=== PATIENT | female | born 1960 | race Caucasian/White ===

== ENCOUNTER → 2021-05-18 | Outpatient (CLI) | payer MEDICARE, OTHER | END | disposition home or self-care (01) | LOC: RADFLMAIN 12:00 | PROVIDERS: ATTEND Otolaryngology | DX: Z53.9 Procedure and treatment not carried out, unspecified reason (principal) ==

== ENCOUNTER 2023-04-21 07:50 | Inpatient (IN) | payer OTHER, MEDICARE ==
[2023-04-21] MEDS ORDERED: SODIUM CHLORIDE 0.9% 1,000 ML IV STA (08:07)
[2023-04-21 08:09] LABS: Glucose,Whole Blood 151 mg/dL (70-110)
[2023-04-21 08:26] LABS: Basophils # (A) 0.1 k/uL (0-0.2); Basophils % (A) 1 %; Eosinophils # (A) 0.3 k/uL (0-0.7); Eosinophils % (A) 5 %; HCT 50.1 % (34.0-46.0); HGB 16.3 gm/dL (11.4-16.0); Lymphocytes # (A) 2.6 k/uL (1.0-4.8); Lymphocytes % (A) 34 %; MCH 29.9 pg (25.0-35.0); MCHC 32.5 g/dL (31.0-37.0); MCV 92.1 fL (80.0-100.0); Mean Platelet Volume 7.6; Monocytes # (A) 0.4 k/uL (0-1.0); Monocytes % (A) 5 %; Neutrophils % (A) 54 %; Platelet Count 214 k/uL (150-450); RBC 5.44 m/uL (3.80-5.40); RDW 13.8 % (11.5-15.5); WBC 7.5 k/uL (3.8-10.6)
[2023-04-21] MEDS ORDERED: SODIUM CHLORIDE 0.9% 1,000 ML IV ONE (08:33)
[2023-04-21 08:39] LABS: Partial Thromboplastin Time 22.6 sec (22.0-30.0); Prothrombin Time 10.5 sec (9.0-12.0)
[2023-04-21 08:45] LABS: ALT 25 U/L (4-34); AST 24 U/L (14-36); African American GFR (CKD) 53 (>60 ml/min/1.73 sqM); Albumin 4.1 g/dL (3.5-5.0); Alkaline Phosphatase 64 U/L (38-126); Anion Gap 12 mmol/L; Blood Urea Nitrogen 33 mg/dL (7-17); Calcium 9.4 mg/dL (8.4-10.2); Carbon Dioxide 24 mmol/L (22-30); Chloride 104 mmol/L (98-107); Glucose 106 mg/dL (74-99); Magnesium 1.7 mg/dL (1.6-2.3); Non-African American GFR(CKD) 46 (>60 ml/min/1.73 sqM); Potassium 4.2 mmol/L (3.5-5.1); Sodium 140 mmol/L (137-145); Total Bilirubin 0.6 mg/dL (0.2-1.3); Total Protein 6.8 g/dL (6.3-8.2)
--- NOTE | 2023-04-21 08:56 | XR ---
EXAMINATION TYPE: XR chest 2V DATE OF EXAM: 04/21/2023 COMPARISON: NONE HISTORY: Shortness of breath TECHNIQUE: Frontal and lateral views of the chest are obtained. FINDINGS: Scattered senescent parenchymal changes noted. No evidence for infiltrate. No evidence for atelectasis. Heart size is stable. Mediastinal structures are stable and grossly unremarkable. No evidence for hilar prominence. Degenerative changes dorsal spine. IMPRESSION: 1. No evidence for acute pulmonary disease.
--- NOTE | 2023-04-21 08:56 | CT ---
EXAMINATION TYPE: CT brain wo con DATE OF EXAM: 04/21/2023 COMPARISON: None HISTORY: Weakness. CT DLP: 1173.[address] of the brain was performed. The ventricles, basal cisterns and sulci overlying the cerebral convexities demonstrate mild enlargem ent. Small area of remote insult left occipital lobe. There is no evidence for intracranial hemorrhage or sulcal effacement. There is decreased attenuation about the periventricular white matter and deep white matter of both c erebral hemispheres, compatible with chronic small vessel ischemia. Differential diagnosis does inclu de demyelination. No mass effects are seen.No midline shift. Osseous calvarium is intact. If symptoms persist consider MRI. IMPRESSION: 1. Age related atrophic and chronic small vessel ischemic change without acute intracranial process s een at this time.
--- NOTE | 2023-04-21 09:04 | ED ---
Weakness HPI - General Chief complaint: Weakness Stated complaint: Weakness Time Seen by Provider: 04/21/23 08:00 Source: patient, police, RN notes reviewed Mode of arrival: wheelchair Limitations: no limitations - History of Present Illness Initial comments: 62-year-old female presents emergency Department with chief complaint of weakness. Patient is brought over from halfway under police custody reevaluation they state that they restarted her cervical last night and she's been very lethargic they felt that her blood pressure is lower heart rate was elevated. Patient states she did fall a few days ago and complains of some mild tailbone pain. Denies any other injuries. Patient does have a history of drug abuse. Patient had no reported fever no cough or cold like symptoms denies complaints of chronic headache or neck pain. - Related Data Home Medications Medication Instructions Recorded Confirmed Atorvastatin [Lipitor] 10 mg PO HS 04/21/23 04/21/23 Metoprolol Tartrate [Lopressor] 50 mg PO DAILY 04/21/23 04/21/23 Omeprazole [PriLOSEC] 40 mg PO DAILY 04/21/23 04/21/23 QUEtiapine FUMARATE [SEROquel XR] 600 mg PO HS 04/21/23 04/21/23 metFORMIN HCL 1,000 mg PO BID 04/21/23 04/21/23 Allergies Allergy/AdvReac Type Severity Reaction Status Date / Time Sulfa (Sulfonamide Allergy Unknown Verified 04/21/23 11:21 Antibiotics) Review of Systems ROS Statement: Those systems with pertinent positive or pertinent negative responses have been documented in the HPI. ROS Other: All systems not noted in ROS Statement are negative. Past Medical History Additional Past Medical History / Comment(s): etoh History of Any Multi-Drug Resistant Organisms: None Reported Additional Past Surgical History / Comment(s): eye. back. foot Past Psychological History: Bipolar Smoking Status: Current every day smoker Past Alcohol Use History: Abuse Past Drug Use History: Methamphetamine General Exam Limitations: no limitations General appearance: alert, in no apparent distress Head exam: Present: atraumatic, normocephalic, normal inspection Eye exam: Present: normal appearance, PERRL, EOMI. Absent: scleral icterus, conjunctival injection, periorbital swelling ENT exam: Present: normal exam, normal oropharynx, mucous membranes moist Neck exam: Present: normal inspection, full ROM. Absent: tenderness, meningismus, lymphadenopathy Respiratory exam: Present: normal lung sounds bilaterally. Absent: respiratory distress, wheezes, rales, rhonchi, stridor Cardiovascular Exam: Present: normal rhythm, tachycardia, normal heart sounds. Absent: systolic murmur, diastolic murmur, rubs, gallop, clicks GI/Abdominal exam: Present: soft, normal bowel sounds. Absent: distended, tenderness, guarding, rebound, rigid Extremities exam: Present: full ROM. Absent: tenderness Neurological exam: Present: alert, oriented X3, reflexes normal. Absent: motor sensory deficit Skin exam: Present: warm, dry, intact, normal color. Absent: rash Course Vital Signs 04/21/23 04/21/23 04/21/23 07:51 08:03 08:19 Temperature 96.9 F L Pulse Rate 117 H 104 H Respiratory 18 20 Rate Blood Pressure 116/96 77/52 O2 Sat by Pulse 93 L Oximetry 04/21/23 04/21/23 04/21/23 08:26 09:06 09:50 Temperature 96.8 F L Pulse Rate 96 99 Respiratory 18 18 Rate Blood Pressure 90/65 89/70 O2 Sat by Pulse 95 97 Oximetry 04/21/23 04/21/23 04/21/23 10:15 11:04 12:10 Temperature 96.7 F L 97.6 F Pulse Rate 104 H 105 H 114 H Respiratory 18 20 18 Rate Blood Pressure 107/77 96/72 110/76 O2 Sat by Pulse 92 L 90 L 94 L Oximetry EKG Findings - EKG Comments: EKG Findings:: EKG performed at 8:03 sinus tachycardia rate of 102 OR 152 QRS 94 QT/QTC 341/400 - EKG Results: EKG: interpreted by ERMD Procedures - [facility] Protocol (Time Out) Nurse: Kadie Orantes Medical Decision Making - Medical Decision Making Was pt. sent in by a medical professional or institution (, PA, [facility] [employer], urgent care, hospital, or shelter...) When possible be specific @ -[facility] nurse Did you speak to anyone other than the patient for history (EMS, parent, family, police, friend...)? What history was obtained from this source @ -Police who brought patient in Did you review nursing and triage notes (agree or disagree)? Why? @ -I reviewed and agree with nursing and triage notes Were old charts reviewed (outside hosp., previous admission, EMS record, old EKG, old radiological studies, urgent care reports/EKG's, shelter records)? Report findings @ -No old charts were reviewed Differential Diagnosis (chest pain, altered mental status, abdominal pain women, abdominal pain men, vaginal bleeding, weakness, fever, dyspnea, syncope, headache, dizziness, GI bleed, back pain, seizure, CVA, palpatations, mental health, musculoskeletal)? @ -Differential Weakness: Hypoglycemia, shock, sepsis, hyponatremia, anemia, infection, MT, ETOH, adverse medicine reaction, overdose, stroke, this is not meant to be an all-inclusive list.e EKG interpreted by me (3pts min.). @ -As above X-rays interpreted by me (1pt min.). @ -Chest x-ray shows no acute process CT interpreted by me (1pt min.). @ -CT brain no intracranial hemorrhage or mass effect U/S interpreted by me (1pt. min.). @ -None done What testing was considered but not performed or refused? (CT, X-rays, U/S, labs)? Why? @ -None What meds were considered but not given or refused? Why? @ -None Did you discuss the management of the patient with other professionals (professionals i.e. , PA, [employer], lab, RT, psych nurse, social service manager, glass embosser, teacher, network security officer, case fitter)? Give summary @ -Dr. valenzuela for admission secondary to ongoing hypotension, tachycardia, temp 96 with rewarming. Patient was placed on broad-spectrum antibiotics patient be admitted with consultation infectious disease Was smoking cessation discussed for >3mins.? @ -No Was critical care preformed (if so, how long)? @ -35mins Were there social determinants of health that impacted care today? How? (Homeles sness, low income, unemployed, alcoholism, drug addiction, transportation, low edu. Level, literacy, decrease access to med. care, halfway, rehab)? @ -No Was there de-escalation of care discussed even if they declined (Discuss DNR or withdrawal of care, Hospice)? DNR status @ -No What co-morbidities impacted this encounter? (DM, HTN, Smoking, COPD, CAD, Cancer, CVA, ARF, Chemo, Hep., AIDS, mental health diagnosis, sleep apnea, morbid obesity)? @ -Drug abuse Was patient admitted / discharged? Hospital course, mention meds given and route, prescriptions, significant lab abnormalities, going to OR and other pertinent info. @ -Admitted patient's presented for increasing weakness, fatigue with moderate hypotension and rectal temp of 96 8 patient was started on fluid bolus, full set of labs, chest x-ray, CT and urinalysis. Patient does not have any obvious signs of infection or but concern for bacteremia, sepsis patient was started on Rocephin, vancomycin patient admitted with infectious disease consult, further management. Undiagnosed new problem with uncertain prognosis? @ -No Drug Therapy requiring intensive monitoring for toxicity (Heparin, Nitro, Insulin, Cardizem)? @ -No Were any procedures done? @ -No Diagnosis/symptom? @ -Weakness, hypotension, possible sepsis Acute, or Chronic, or Acute on Chronic? @ -Acute Uncomplicated (without systemic symptoms) or Complicated (systemic symptoms)? @ -complicated Side effects of treatment? @ -No Exacerbation, Progression, or Severe Exacerbation? @ -No Poses a threat to life or bodily function? How? (Chest pain, USA, MT, pneumonia, PE, COPD, DKA, ARF, appy, cholecystitis, CVA, Diverticulitis, Homicidal, Suicidal, threat to staff... and all critical care pts) @ -Yes patient has septic concerning for end organ failure - Lab Data Result diagrams: 04/21/23 08:16 04/21/23 08:16 Lab Results 04/21/23 04/21/23 04/21/23 Range/Units 08:05 08:16 08:16 WBC 7.5 (3.8-10.6) k/uL RBC 5.44 H (3.80-5.40) m/uL Hgb 16.3 H (11.4-16.0) gm/dL Hct 50.1 H (34.0-46.0) % MCV 92.1 (80.0-100.0) fL MCH 29.9 (25.0-35.0) pg MCHC 32.5 (31.0-37.0) g/dL RDW 13.8 (11.5-15.5) % Plt Count 214 (150-450) k/uL MPV 7.6 Neutrophils % 54 % Lymphocytes % 34 % Monocytes % 5 % Eosinophils % 5 % Basophils % 1 % Neutrophils # 4.0 (1.3-7.7) k/uL Lymphocytes # 2.6 (1.0-4.8) k/uL Monocytes # 0.4 (0-1.0) k/uL Eosinophils # 0.3 (0-0.7) k/uL Basophils # 0.1 (0-0.2) k/uL PT 10.5 (9.0-12.0) sec INR 1.0 (<1.2) APTT 22.6 (22.0-30.0) sec Sodium (137-145) mmol/L Potassium (3.5-5.1) mmol/L Chloride (98-107) mmol/L Carbon Dioxide (22-30) mmol/L Anion Gap mmol/L BUN (7-17) mg/dL Creatinine (0.52-1.04) mg/dL Est GFR (CKD-EPI)AfAm (>60 ml/min/1.73 sqM) Est GFR (CKD-EPI)NonAf (>60 ml/min/1.73 sqM) Glucose (74-99) mg/dL POC Glucose (mg/dL) 151 H (70-110) mg/dL POC Glu Glass Tube Bender ID Elida De Dios Lactic Ac Sepsis Rflx Plasma Lactic Acid Caleb (0.7-2.0) mmol/L Calcium (8.4-10.2) mg/dL Magnesium (1.6-2.3) mg/dL Total Bilirubin (0.2-1.3) mg/dL AST (14-36) U/L ALT (4-34) U/L Alkaline Phosphatase (38-126) U/L Troponin I (0.000-0.034) ng/mL Total Protein (6.3-8.2) g/dL Albumin (3.5-5.0) g/dL TSH (0.465-4.680) mIU/L Urine Color Urine Appearance (Clear) Urine pH (5.0-8.0) Ur Specific [place] (1.001-1.035) Urine Protein (Negative) Urine Glucose (UA) (Negative) Urine Ketones (Negative) Urine Blood (Negative) Urine Nitrite (Negative) Urine Bilirubin (Negative) Urine Urobilinogen (<2.0) mg/dL Ur Leukocyte Esterase (Negative) Urine Opiates Screen (NotDetected) Ur Oxycodone Screen (NotDetected) Urine Methadone Screen (NotDetected) Ur Propoxyphene Screen (NotDetected) Ur Barbiturates Screen (NotDetected) U Tricyclic Antidepress (NotDetected) Ur Phencyclidine Scrn (NotDetected) Ur Amphetamines Screen (NotDetected) U Methamphetamines Scrn (NotDetected) U Benzodiazepines Scrn (NotDetected) Urine Cocaine Screen (NotDetected) U Marijuana (THC) Screen (NotDetected) 04/21/23 04/21/23 04/21/23 Range/Units 08:16 08:16 08:16 WBC (3.8-10.6) k/uL RBC (3.80-5.40) m/uL Hgb (11.4-16.0) gm/dL Hct (34.0-46.0) % MCV (80.0-100.0) fL MCH (25.0-35.0) pg MCHC (31.0-37.0) g/dL RDW (11.5-15.5) % Plt Count (150-450) k/uL MPV Neutrophils % % Lymphocytes % % Monocytes % % Eosinophils % % Basophils % % Neutrophils # (1.3-7.7) k/uL Lymphocytes # (1.0-4.8) k/uL Monocytes # (0-1.0) k/uL Eosinophils # (0-0.7) k/uL Basophils # (0-0.2) k/uL PT (9.0-12.0) sec INR (<1.2) APTT (22.0-30.0) sec Sodium 140 (137-145) mmol/L Potassium 4.2 (3.5-5.1) mmol/L Chloride 104 (98-107) mmol/L Carbon Dioxide 24 (22-30) mmol/L Anion Gap 12 mmol/L BUN 33 H (7-17) mg/dL Creatinine 1.24 H (0.52-1.04) mg/dL Est GFR (CKD-EPI)AfAm 53 (>60 ml/min/1.73 sqM) Est GFR (CKD-EPI)NonAf 46 (>60 ml/min/1.73 sqM) Glucose 106 H (74-99) mg/dL POC Glucose (mg/dL) (70-110) mg/dL POC Glu Glass Tube Bender ID Lactic Ac Sepsis Rflx Plasma Lactic Acid Caleb 3.1 H* (0.7-2.0) mmol/L Calcium 9.4 (8.4-10.2) mg/dL Magnesium 1.7 (1.6-2.3) mg/dL Total Bilirubin 0.6 (0.2-1.3) mg/dL AST 24 (14-36) U/L ALT 25 (4-34) U/L Alkaline Phosphatase 64 (38-126) U/L Troponin I <0.012 (0.000-0.034) ng/mL Total Protein 6.8 (6.3-8.2) g/dL Albumin 4.1 (3.5-5.0) g/dL TSH 2.910 (0.465-4.680) mIU/L Urine Color Urine Appearance (Clear) Urine pH (5.0-8.0) Ur Specific [place] (1.001-1.035) Urine Protein (Negative) Urine Glucose (UA) (Negative) Urine Ketones (Negative) Urine Blood (Negative) Urine Nitrite (Negative) Urine Bilirubin (Negative) Urine Urobilinogen (<2.0) mg/dL Ur Leukocyte Esterase (Negative) Urine Opiates Screen (NotDetected) Ur Oxycodone Screen (NotDetected) Urine Methadone Screen (NotDetected) Ur Propoxyphene Screen (NotDetected) Ur Barbiturates Screen (NotDetected) U Tricyclic Antidepress (NotDetected) Ur Phencyclidine Scrn (NotDetected) Ur Amphetamines Screen (NotDetected) U Methamphetamines Scrn (NotDetected) U Benzodiazepines Scrn (NotDetected) Urine Cocaine Screen (NotDetected) U Marijuana (THC) Screen (NotDetected) 04/21/23 04/21/23 Range/Units 08:45 09:01 WBC (3.8-10.6) k/uL RBC (3.80-5.40) m/uL Hgb (11.4-16.0) gm/dL Hct (34.0-46.0) % MCV (80.0-100.0) fL MCH (25.0-35.0) pg MCHC (31.0-37.0) g/dL RDW (11.5-15.5) % Plt Count (150-450) k/uL MPV Neutrophils % % Lymphocytes % % Monocytes % % Eosinophils % % Basophils % % Neutrophils # (1.3-7.7) k/uL Lymphocytes # (1.0-4.8) k/uL Monocytes # (0-1.0) k/uL Eosinophils # (0-0.7) k/uL Basophils # (0-0.2) k/uL PT (9.0-12.0) sec INR (<1.2) APTT (22.0-30.0) sec Sodium (137-145) mmol/L Potassium (3.5-5.1) mmol/L Chloride (98-107) mmol/L Carbon Dioxide (22-30) mmol/L Anion Gap mmol/L BUN (7-17) mg/dL Creatinine (0.52-1.04) mg/dL Est GFR (CKD-EPI)AfAm (>60 ml/min/1.73 sqM) Est GFR (CKD-EPI)NonAf (>60 ml/min/1.73 sqM) Glucose (74-99) mg/dL POC Glucose (mg/dL) (70-110) mg/dL POC Glu Glass Tube Bender ID Lactic Ac Sepsis Rflx Y Plasma Lactic Acid Caleb (0.7-2.0) mmol/L Calcium (8.4-10.2) mg/dL Magnesium (1.6-2.3) mg/dL Total Bilirubin (0.2-1.3) mg/dL AST (14-36) U/L ALT (4-34) U/L Alkaline Phosphatase (38-126) U/L Troponin I (0.000-0.034) ng/mL Total Protein (6.3-8.2) g/dL Albumin (3.5-5.0) g/dL TSH (0.465-4.680) mIU/L Urine Color Light Yellow Urine Appearance Clear (Clear) Urine pH 5.0 (5.0-8.0) Ur Specific [place] 1.007 (1.001-1.035) Urine Protein Negative (Negative) Urine Glucose (UA) Negative (Negative) Urine Ketones Negative (Negative) Urine Blood Negative (Negative) Urine Nitrite Negative (Negative) Urine Bilirubin Negative (Negative) Urine Urobilinogen <2.0 (<2.0) mg/dL Ur Leukocyte Esterase Negative (Negative) Urine Opiates Screen Not Detected (NotDetected) Ur Oxycodone Screen Not Detected (NotDetected) Urine Methadone Screen Not Detected (NotDetected) Ur Propoxyphene Screen Not Detected (NotDetected) Ur Barbiturates Screen Not Detected (NotDetected) U Tricyclic Antidepress Detected H (NotDetected) Ur Phencyclidine Scrn Not Detected (NotDetected) Ur Amphetamines Screen Detected H (NotDetected) U Methamphetamines Scrn Detected H (NotDetected) U Benzodiazepines Scrn Not Detected (NotDetected) Urine Cocaine Screen Not Detected (NotDetected) U Marijuana (THC) Screen Not Detected (NotDetected) Critical Care Time Critical Care Time: Yes Total Critical Care Time: 35 Disposition Clinical Impression: Sepsis, Hypotension, Weakness, Drug abuse Disposition: ADMITTED IP TO THIS [facility] Condition: Poor Time of Disposition: 11:08
[2023-04-21] MEDS: SODIUM CHLORIDE 0.9% 1,000 ML IV SCH ×2 (09:08→18:24)
[2023-04-21 09:50] LABS: Appearance,Urine Clear (Clear); Bilirubin,Urine Negative (Negative); Blood,Urine Negative (Negative); Color,Urine Light Yellow; Glucose,Urine (UA) Negative (Negative); Ketones,Urine Negative (Negative); Leukocyte Esterase,Urine Negative (Negative); Nitrite,Urine Negative (Negative); Protein,Urine Negative (Negative); Specific Gravity,Urine 1.007 (1.001-1.035); Urobilinogen,Urine <2.0 mg/dL (<2.0)
[2023-04-21 09:56] LABS: Amphetamine Screen,Urine Detected (NotDetected); Barbiturate Screen,Urine Not Detected (NotDetected); Benzodiazepines Screen,Urine Not Detected (NotDetected); Cocaine Screen,Urine Not Detected (NotDetected); Methadone Screen, Urine Not Detected (NotDetected); Opiate Screen,Urine Not Detected (NotDetected); Oxycodone Screen, Urine Not Detected (NotDetected); Phencyclidine Screen,Urine Not Detected (NotDetected); Tricyclic Antidepressant,Urine Detected (NotDetected); Urn Cannabinoid Scrn Not Detected (NotDetected)
[2023-04-21] MEDS ORDERED: VANCOMYCIN IV PER PHARMACY 1 EACH MISC MISCELLANE PRN (11:06)
[2023-04-21] MEDS ORDERED: NALOXONE 0.4 MG/ML 1 ML VIAL IV PRN (11:09)
[2023-04-21] MEDS ORDERED: VANCOMYCIN 1,250 MG in SODIUM CHLORIDE 0.9% 250 ML IVPB STA (11:14)
[2023-04-21] MEDS ORDERED: IOPAMIDOL CONTRAST (ORAL USE) VIAL PO PRN (13:44)
--- NOTE | 2023-04-21 13:47 | P.HPIM ---
History of Present Illness This is a pleasant 62 years old female with past medical history of bipolar disorder, nicotine dependence, substance abuse. [facility] was [facility] for evaluation of weakness and lethargy and hypotension patient was pale and sleepy answers questions appropriately and speech is clear. Patient comes from [facility], she has been in [facility] for the last 4-5 days as she states, there is a artillery officer at bedside. Patient says that she's been feeling very weak over the last 2 days, she fell 2 days ago and one more time yesterday morning after she took her Seroquel morning dose she feels very weak. She complains from some pain in the tail bone. She denies any other body trauma. She states that she has decreased frequency of urination but no dysuria or urgency, her appetite is okay and she denies any diarrhea or vomiting or abdomin al A however on exam she has mild epigastric tenderness and suprapubic tenderness She denies chest pain dyspnea. She denies weakness or numbness, she had headaches on and off but currently she has no headache or very very mild headache. She smokes about 5 cigarettes per day and she was counseled to quit but he does not now. She's been drinking alcohol, she states about 5 out of 7 days she's been drinking and the stomach was before going to [facility]. She admits using methamphetamine and patient was counseled to quit all the substances and she agrees On admission she is tachycardic with heart rate 114 Blood pressure was on the low side 77/52 on admission, currently 110/76 after 2 L emergency room CBC is unremarkable hemoglobin 16.3. INR 1.0. Creatinine is slightly up 1.2 rest of BMP, liver enzymes, troponin and TSH were unremarkable and within the reference range. Slightly elevated lactic acid came back to normal. Urine analysis is negative. Urine drug screen is positive for tricyclic antidepressant, amphetamine and methamphetamine EKG showing sinus tachycardia at [address]-T changes Chest x-ray: No acute process CT of the brain: No acute process. Besides the fluids patient received 1 dose of ceftriaxone in the emergency room and started on vancomycin and consulted ID team for possible sepsis Review of Systems Review of systems CONSTITUTIONAL: No fever, no malaise, no fatigue. HEENT: No recent visual problems or hearing problems. Denied any sore throat. CARDIOVASCULAR: No orthopnea, PND, no palpitations, no syncope. PULMONARY: No shortness of breath, no cough, no hemoptysis. GASTROINTESTINAL: No diarrhea, no nausea, no vomiting, no abdominal pain. Normoactive bowel sounds. NEUROLOGICAL: No headaches, no weakness, no numbness. HEMATOLOGICAL: Denies any bleeding or petechiae. GENITOURINARY: Denies any burning micturition, frequency, or urgency. MUSCULOSKELETAL/RHEUMATOLOGICAL: Denies any joint pain, swelling, or any muscle pain. ENDOCRINE: Denies any polyuria or polydipsia. Past Medical History Additional Past Medical History / Comment(s): etoh History of Any Multi-Drug Resistant Organisms: None Reported Additional Past Surgical History / Comment(s): eye. back. foot Past Psychological History: Bipolar Smoking Status: Current every day smoker Past Alcohol Use History: Abuse Past Drug Use History: Methamphetamine Medications and Allergies Home Medications Medication Instructions Recorded Confirmed Type Atorvastatin [Lipitor] 10 mg PO HS 04/21/23 04/21/23 History Metoprolol Tartrate [Lopressor] 50 mg PO DAILY 04/21/23 04/21/23 History Omeprazole [PriLOSEC] 40 mg PO DAILY 04/21/23 04/21/23 History QUEtiapine FUMARATE [SEROquel XR] 600 mg PO HS 04/21/23 04/21/23 History metFORMIN HCL 1,000 mg PO BID 04/21/23 04/21/23 History Allergies Allergy/AdvReac Type Severity Reaction Status Date / Time Sulfa (Sulfonamide Allergy Unknown Verified 04/21/23 11:21 Antibiotics) Physical Exam Vitals: Vital Signs Temp Pulse Resp BP Pulse Ox 04/21/23 12:38 98.9 F 04/21/23 12:10 114 H 18 110/76 94 L 04/21/23 11:04 97.6 F 105 H 20 96/72 90 L 04/21/23 10:15 96.7 F L 104 H 18 107/77 92 L 04/21/23 09:50 99 18 89/70 97 04/21/23 09:06 96 18 90/65 95 04/21/23 08:26 96.8 F L 04/21/23 08:19 77/52 04/21/23 08:03 104 H 20 116/96 04/21/23 07:51 96.9 F L 117 H 18 93 L Intake and Output 04/20/23 04/21/23 04/21/23 22:59 06:59 14:59 Other: Weight 65.771 kg -GENERAL: The patient is alert and oriented x3, patient lethargic drowsy but she is not sleepy and she answers questions appropriately, not in any acute distr ess. Well developed, well nourished. HEENT: Pupils are round and equally reacting to light. EOMI. No scleral icterus. No conjunctival pallor. Normocephalic, atraumatic. No pharyngeal erythema. No thyromegaly. CARDIOVASCULAR: S1 and S2 present. No murmurs, rubs, or gallops. PULMONARY: Chest is clear to auscultation, no wheezing , no crackles. -ABDOMEN: Soft,very mild epigastric tenderness and mild suprapubic tenderness, no rebound tenderness or guardingr, nondistended, normoactive bowel sounds. No palpable organomegaly. MUSCULOSKELETAL: No joint swelling or deformity. EXTREMITIES: No cyanosis, clubbing, or pedal edema. NEUROLOGICAL: Gross neurological examination did not reveal any focal deficits. SKIN: No rashes. no petechiae. Results CBC & Chem 7: 04/21/23 08:16 04/21/23 08:16 Labs: Abnormal Lab Results - Last 24 Hours (Table) 04/21/23 04/21/23 04/21/23 Range/Units 08:05 08:16 08:16 RBC 5.44 H (3.80-5.40) m/uL Hgb 16.3 H (11.4-16.0) gm/dL Hct 50.1 H (34.0-46.0) % BUN 33 H (7-17) mg/dL Creatinine 1.24 H (0.52-1.04) mg/dL Glucose 106 H (74-99) mg/dL POC Glucose (mg/dL) 151 H (70-110) mg/dL Plasma Lactic Acid Caleb (0.7-2.0) mmol/L U Tricyclic Antidepress (NotDetected) Ur Amphetamines Screen (NotDetected) U Methamphetamines Scrn (NotDetected) 04/21/23 04/21/23 Range/Units 08:16 09:01 RBC (3.80-5.40) m/uL Hgb (11.4-16.0) gm/dL Hct (34.0-46.0) % BUN (7-17) mg/dL Creatinine (0.52-1.04) mg/dL Glucose (74-99) mg/dL POC Glucose (mg/dL) (70-110) mg/dL Plasma Lactic Acid Caleb 3.1 H* (0.7-2.0) mmol/L U Tricyclic Antidepress Detected H (NotDetected) Ur Amphetamines Screen Detected H (NotDetected) U Methamphetamines Scrn Detected H (NotDetected) Assessment and Plan Assessment: Hypotension, present on admission. Rule out sepsis Generalized weakness and lethargy secondary to above Mild acute kidney injury secondary to above Substance abuse, Urine drug screen is positive for tricyclic antidepressant, amphetamine and methamphetamine Plan: Continue with aggressive fluid hydration, currently NS at 1:30 Monitor heart rate and blood pressure Follow-up with infectious disease team and follow up their recommendation regarding antibiotic management Order CT of the abdomen and pelvis with oral contrast only Labs and medication were reviewed.. Continue same treatment. Continue with symptomatic treatment. Resume home medication. Monitor labs and vitals. DVT and GI prophylaxis. Further recommendations as per clinical course of the patient DVT prophylaxis: Subcutaneous heparin GI Prophylaxis: Pepcid Prognosis is guarded
--- NOTE | 2023-04-21 15:55 | CT ---
EXAMINATION TYPE: CT abdomen pelvis wo con DATE OF EXAM: 04/21/2023 COMPARISON: none HISTORY: Hypotension , mild abd pain CT DLP: 614.6 mGycm Examination of the solid and hollow viscera is limited given the lack of contrast. FINDINGS: LUNG BASES: No evidence for nodule. Basilar atelectasis. LIVER/GB: The gallbladder is unremarkable. No space-occupying hepatic lesion. Hepatic granuloma noted . PANCREAS: No pancreatic mass identified. No inflammatory process seen. SPLEEN: No evidence for splenomegaly. No intrasplenic lesions seen. ADRENALS: No adrenal nodules identified. No evidence for thickening. KIDNEYS: No evidence for renal mass. No nephrolithiasis. There is fullness of the bilateral renal col lecting systems. Correlate for bladder outlet obstruction or neurogenic bladder. No obstructing calcu lenka is identified at this time. The urinary bladder is distended with craniocaudal measurement of 16 cm. BOWEL: Appendix has a normal appearance. No evidence of bowel obstruction. No inflammatory process. Lymph nodes: No evidence for adenopathy greater than 1 cm. Abdominal aorta: Atheromatous changes seen. No evidence for aneurysm. Genital organs: No significant abnormality. Other: No significant abnormality. IMPRESSION: 1. There is mild fullness of the renal collecting systems with distention of the urinary bladder. Cor relate for bladder outlet obstruction or neurogenic bladder. No obstructing calculus is identified. 2. Dependent basilar atelectasis.
[2023-04-21] MEDS: ACETAMINOPHEN TAB 325 MG TAB PO PRN (18:23)
[2023-04-21] MEDS: FAMOTIDINE 20 MG/2 ML VIAL IV SCH (21:47)
[2023-04-21] MEDS: HEPARIN SODIUM,PORCINE/PF 5,000 UNIT/0.5 ML SYRINGE SQ SCH (21:47)
--- NOTE | 2023-04-21 23:01 | P.CONS ---
History of Present Illness - Reason for Consult Consult date: 04/21/23 - History of Present Illness Patient is a 62-year-old female with a past medical history significant for bipolar disorder substance Use who [facility] patient has been brought into the ER for evaluation of weakness lethargy and hypotension patient's symptom apparently has been going on for the last 2 days and patient apparently mention did have a fall however did not lost any consciousness patient denies having any headache or URI symptoms except some runny nose denies having any chest pain or shortness of breath occasional cough in the hospital waiting some vague abdominal pain no diarrhea or urinary symptoms patient on presentation to the hospital was afebrile and no fever; subsequently patient did have mild tachycardia white count was normal BUN/creatinine has been mildly elevated lactic acid was elevated liver enzymes are normal urine was negative urine drug screen was positive for amphetamines methamphetamines and tricyclic patient did have CT of the brain that was negative for any bleed chest x-ray no evidence for acute pulmonary disease patient also have a CT abdominal pelvis mild fullness of the renal collecting system with distention of the urinary bladder correlate for bladder outlet obstruction or neurogenic bladder dependent bibasilar atelectasis patient did receive a dose of Rocephin infectious disease was consulted for possible sepsis most information has been extracted from review the chart and the patient herself not a very good historian Past Medical History Additional Past Medical History / Comment(s): etoh History of Any Multi-Drug Resistant Organisms: None Reported Additional Past Surgical History / Comment(s): eye. back. foot Past Psychological History: Bipolar Smoking Status: Current every day smoker Past Alcohol Use History: Abuse Past Drug Use History: Methamphetamine Medications and Allergies Home Medications Medication Instructions Recorded Confirmed Type Atorvastatin [Lipitor] 10 mg PO HS 04/21/23 04/21/23 History Metoprolol Tartrate [Lopressor] 50 mg PO DAILY 04/21/23 04/21/23 History Omeprazole [PriLOSEC] 40 mg PO DAILY 04/21/23 04/21/23 History QUEtiapine FUMARATE [SEROquel XR] 600 mg PO HS 04/21/23 04/21/23 History metFORMIN HCL 1,000 mg PO BID 04/21/23 04/21/23 History Allergies Allergy/AdvReac Type Severity Reaction Status Date / Time Sulfa (Sulfonamide Allergy Unknown Verified 04/21/23 11:21 Antibiotics) Physical Exam Vitals: Vital Signs Temp Pulse Resp BP Pulse Ox 04/21/23 14:35 112 H 18 112/90 93 L 04/21/23 13:12 98.0 F 123 H 18 111/86 96 04/21/23 12:38 98.9 F 04/21/23 12:10 114 H 18 110/76 94 L 04/21/23 11:04 97.6 F 105 H 20 96/72 90 L 04/21/23 10:15 96.7 F L 104 H 18 107/77 92 L 04/21/23 09:50 99 18 89/70 97 04/21/23 09:06 96 18 90/65 95 04/21/23 08:26 96.8 F L 04/21/23 08:19 77/52 04/21/23 08:03 104 H 20 116/96 04/21/23 07:51 96.9 F L 117 H 18 93 L Intake and Output 04/21/23 04/21/23 04/21/23 06:59 14:59 22:59 Other: Weight 65.771 kg Results CBC & Chem 7: 04/21/23 08:16 04/21/23 08:16 Labs: Abnormal Lab Results - Last 24 Hours (Table) 04/21/23 04/21/23 04/21/23 Range/Units 08:05 08:16 08:16 RBC 5.44 H (3.80-5.40) m/uL Hgb 16.3 H (11.4-16.0) gm/dL Hct 50.1 H (34.0-46.0) % BUN 33 H (7-17) mg/dL Creatinine 1.24 H (0.52-1.04) mg/dL Glucose 106 H (74-99) mg/dL POC Glucose (mg/dL) 151 H (70-110) mg/dL Plasma Lactic Acid Caleb (0.7-2.0) mmol/L U Tricyclic Antidepress (NotDetected) Ur Amphetamines Screen (NotDetected) U Methamphetamines Scrn (NotDetected) 04/21/23 04/21/23 Range/Units 08:16 09:01 RBC (3.80-5.40) m/uL Hgb (11.4-16.0) gm/dL Hct (34.0-46.0) % BUN (7-17) mg/dL Creatinine (0.52-1.04) mg/dL Glucose (74-99) mg/dL POC Glucose (mg/dL) (70-110) mg/dL Plasma Lactic Acid Caleb 3.1 H* (0.7-2.0) mmol/L U Tricyclic Antidepress Detected H (NotDetected) Ur Amphetamines Screen Detected H (NotDetected) U Methamphetamines Scrn Detected H (NotDetected) Assessment and Plan Plan: 1patient was in the hospital with weakness lethargy apparently did have a fall patient did have mild tachycardia elevated lactic acid however no fever and white count has been normal initial work-up including a chest x-ray and UA was negative CT abdominal pelvis did show some fullness of the collecting system and concern for possible bladder outlet obstruction patient did have mild tenderness to right lower quadrant area on clinical examination 2-we will repeat her UA and culture check a CRP and a procalcitonin 3-empirically on Rocephin while waiting for the work-up to be completed We will follow on clinical condition and cultures to further adjust medication if needed Thank you for this consultation we will follow the patient along with you Time with Patient: Greater than 30
[2023-04-22] MEDS ORDERED: VANCOMYCIN 1,250 MG in SODIUM CHLORIDE 0.9% 250 ML IVPB SCH (09:00)
[2023-04-22] MEDS: ACETAMINOPHEN TAB 325 MG TAB PO PRN (10:26)
[2023-04-22] MEDS: HEPARIN SODIUM,PORCINE/PF 5,000 UNIT/0.5 ML SYRINGE SQ SCH ×2 (10:26→20:12)
[2023-04-22 11:08] LABS: Basophils # (A) 0.06 X 10*3/uL (0.00-0.10); Eosinophils % (A) 6.6 %; HCT 45.9 % (37.2-46.3); HGB 14.5 d/dL (12.0-15.0); Lymphocytes # (A) 2.07 X 10*3/uL (0.90-5.00); Lymphocytes % (A) 34.1 %; MCH 29.4 pg (27.0-32.0); MCHC 31.6 d/dL (32.0-37.0); MCV 92.9 FL (80.0-97.0); Mean Platelet Volume 10.6 FL (9.5-12.2); Monocytes # (A) 0.51 X 10*3/uL (0.20-1.00); Monocytes % (A) 8.4 %; NRBC Per 100 WBC 0 X 10*3/uL (0.00-0.01); Neutrophils # (A) 3.01 X 10*3/uL (1.80-7.70); Neutrophils % (A) 49.6 %; Platelet Count 165 X 10*3/uL (140-440); RBC 4.94 X 10*6/uL (4.10-5.20); RDW 13.7 % (11.5-14.5); WBC 6.07 X 10*3/uL (4.50-10.00)
[2023-04-22 14:00] VITALS: BMI 24.9
[2023-04-22] MEDS: SODIUM CHLORIDE 0.9% 1,000 ML IV SCH ×4 (17:36→23:32)
--- NOTE | 2023-04-22 18:42 | P.PN ---
Subjective This is a pleasant 62 years old female with past medical history of bipolar disorder, nicotine dependence, substance abuse. [facility] of weakness and lethargy and hypotension patient was pale and sleepy answers questions appropriately and speech is clear. Patient comes from [facility], she has been in [facility] for the last 4-5 days as she states, there is a staff combat information center officer at bedside. Patient says that she's been feeling very weak over the last 2 days, she fell 2 days ago and one more time yesterday morning after she took her Seroquel morning dose she feels very weak. She complains from some pain in the tail bone. She d enies any other body trauma. She states that she has decreased frequency of urination but no dysuria or urgency, her appetite is okay and she denies any diarrhea or vomiting or abdominal A however on exam she has mild epigastric tenderness and suprapubic tenderness She denies chest pain dyspnea. She denies weakness or numbness, she had headaches on and off but currently she has no headache or very very mild headache. She smokes about 5 cigarettes per day and she was counseled to quit but he does not now. She's been drinking alcohol, she states about 5 out of 7 days she's been drinking and the stomach was before going to [facility]. She admits using methamphetamine and patient was counseled to quit all the substances and she agrees On admission she is tachycardic with heart rate 114 Blood pressure was on the low side 77/52 on admission, currently 110/76 after 2 L emergency room CBC is unremarkable hemoglobin 16.3. INR 1.0. Creatinine is slightly up 1.2 rest of BMP, liver enzymes, troponin and TSH were unremarkable and within the reference range. Slightly elevated lactic acid came back to normal. Urine analysis is negative. Urine drug screen is positive for tricyclic antidepressant, amphetamine and methamphetamine EKG showing sinus tachycardia at [address]-T changes Chest x-ray: No acute process CT of the brain: No acute process. Besides the fluids patient received 1 dose of ceftriaxone in the emergency room and started on vancomycin and consulted ID team for possible sepsis 04/21/2023 Patient states that her low back pain today is mild 2-3/10 in severity, she still has mild lightheadedness but she is able to increase movement, patient was able to walk to the bathroom by herself just confirmed by the bedside officer. She denies any other specific complaint She had some mild suprapubic and to the right side tenderness and she has fullness in the renal system, obstructive lesion of the urinary bladder was suspected urologist consulted, patient postvoid she has retention of over 400 mL she straight cath and then she emptied everything. We will keep doing bladder scan. We will add Tylenol No. 3 for her low back pain Patient blood pressure is improving, however she needed assistance walking to the bathroom. Patient denies any weakness or new numbness in her lower extremities or somewhere else, and on my exam I did not notice any significant weakness in both upper and lower extremities, no decreased sensation. Patient complains from chronic tingling in the salt of her feet but states that's chronic from her neuropathy. We'll continue normal saline with 130 mL/h. Discussed with staff to check orthostatic vital Active Medications Generic Name Dose Route Start Last Admin Trade Name Freq PRN Reason Stop Dose Admin Acetaminophen 650 mg 04/21/23 11:09 04/22/23 10:26 Acetaminophen Tab 325 Mg Tab PO 650 mg Q6HR PRN Administration Mild Pain or Fever > 100.5 Acetaminophen/Codeine Phosphate 1 each 04/22/23 18:40 Acetaminophen-Codeine 300-30mg Tab PO BID SOULEYMANE Famotidine 20 mg 04/21/23 21:00 04/21/23 21:47 Famotidine 20 Mg/2 Ml Vial IV 20 mg HS SOULEYMANE Administration Heparin Sodium (Porcine) 5,000 unit 04/21/23 21:00 04/22/23 10:26 Heparin Sodium,Porcine/Pf 5,000 Unit/0.5 Ml Syringe SQ 5,000 unit Q12HR SOULEYMANE Administration Sodium Chloride 1,000 mls @ 130 mls/hr 04/21/23 08:45 04/22/23 17:36 Saline 0.9% IV 130 mls/hr .[id number] SOULEYMANE Administration Ceftriaxone Sodium 2 gm/ 50 mls @ 100 mls/hr 04/22/23 09:00 04/22/23 10:26 Sodium Chloride IVPB 100 mls/hr Q24HR SOULEYMANE Administration Protocol Naloxone HCl 0.2 mg 04/21/23 11:09 Naloxone 0.4 Mg/Ml 1 Ml Vial IV Q2M PRN Opioid Reversal Objective - Vital Signs Vital signs: Vital Signs Temp 98.1 F 04/22/23 07:00 Pulse 99 04/22/23 07:00 Resp 16 04/22/23 07:00 BP 134/76 04/22/23 07:00 Pulse Ox 96 04/22/23 07:00 FiO2 Intake & Output 04/21/23 04/22/23 04/22/23 18:59 06:59 18:59 Intake Total 200 Balance 200 Weight 65.771 kg Intake: Oral 200 Other: # Voids 1 - Exam GENERAL: The patient is alert and oriented x3, not in any acute distress. Well developed, well nourished. HEENT: Pupils are round and equally reacting to light. EOMI. No scleral icterus. No conjunctival pallor. Normocephalic, atraumatic. No pharyngeal erythema. No thyromegaly. CARDIOVASCULAR: S1 and S2 present. No murmurs, rubs, or gallops. PULMONARY: Chest is clear to auscultation, no wheezing . no crackles. ABDOMEN: Soft, nontender, nondistended, normoactive bowel sounds. No palpable organomegaly. MUSCULOSKELETAL: No joint swelling or deformity. EXTREMITIES: No cyanosis, clubbing, or pedal edema. NEUROLOGICAL: Gross neurological examination did not reveal any focal deficits. SKIN: No rashes. no petechiae. - Labs CBC & Chem 7: 04/22/23 05:52 04/21/23 08:16 Labs: Abnormal Lab Results - Last 24 Hours (Table) 04/22/23 Range/Units 05:52 MCHC 31.6 L (32.0-37.0) d/dL Eosinophils # 0.40 H (0.04-0.35) X 10*3/uL Assessment and Plan Assessment: Hypotension, present on admission. Rule out sepsis Generalized weakness and lethargy secondary to above Mild acute kidney injury secondary to above Substance abuse, Urine drug screen is positive for tricyclic antidepressant, amphetamine and methamphetamine Fall at home with temp on blunt trauma Dilated gallbladder and right collecting renal system. Mild most likely related to mild urinary retention. Plan: Continue with aggressive fluid hydration, currently NS at 1:30 Monitor heart rate and blood pressure, improving with IV fluids most likely secondary to dehydration Follow-up with infectious disease team and follow up their recommendation regarding antibiotic management. Currently on ceftriaxone Follow-up with urologist and continue bladder scan Labs and medication were reviewed.. Continue same treatment. Continue with symptomatic treatment. Resume home medication. Monitor labs and vitals. DVT and GI prophylaxis. Further recommendations as per clinical course of the patient DVT prophylaxis: Subcutaneous heparin GI Prophylaxis: Pepcid Prognosis is guarded
[2023-04-22 18:44] LABS: ALT 18 U/L (8-44); AST 19 U/L (13-35); Albumin 3.6 d/dL (3.8-4.9); Albumin/Globulin Ratio 1.71 Ratio (1.60-3.17); Alkaline Phosphatase 64 U/L (41-126); BUN/Creat Ratio 20.89 Ratio (12.00-20.00); Blood Urea Nitrogen 18.8 mg/dL (9.0-27.0); Calcium 8.8 mg/dL (8.7-10.3); Carbon Dioxide 18.5 mmol/L (21.6-31.8); Chloride 107 mmol/L (96-109); Globulin 2.1 d/dL (1.6-3.3); Glucose 74 mg/dL (70-110); Potassium 4.9 mmol/L (3.5-5.5); Sodium 144 mmol/L (135-145); Total Bilirubin 0.2 mg/dL (0.3-1.2); Total Protein 5.7 d/dL (6.2-8.2)
[2023-04-22] MEDS: FAMOTIDINE 20 MG/2 ML VIAL IV SCH (20:13)
[2023-04-22] MEDS: Acetaminophen-Codeine 300-30mg TAB PO SCH ×2 (20:13→23:32)
--- NOTE | 2023-04-22 21:29 | P.PN ---
Subjective Progress Note Date: 04/22/23 Principal diagnosis: SIRS Patient is a 62-year-old female with a past medical history significant for bipolar disorder substance Use who is currently in the [facility] patient has been brought into the ER for evaluation of weakness lethargy and hypotension , patient did have a extensive workup with a negative UA and chest x-ray CT abdominal pelvis with some right-sided fullness but no mention of any pyelonephritis or cystitis. On today's evaluation that is 04/22/2023, the patient denies having any fever or any chills, the patient is breathing comfortably on room air no chest pain shortness of breath or cough no abdominal pain or diarrhea Objective - Vital Signs Vital signs: Vital Signs Temp 98.1 F 04/22/23 07:00 Pulse 99 04/22/23 07:00 Resp 16 04/22/23 07:00 BP 134/76 04/22/23 07:00 Pulse Ox 96 04/22/23 07:00 FiO2 Intake & Output 04/21/23 04/22/23 04/22/23 18:59 06:59 18:59 Intake Total 200 Balance 200 Weight 65.771 kg Intake: Oral 200 Other: # Voids 1 - Exam GENERAL DESCRIPTION: Middle-aged female lying in bed in no distress RESPIRATORY SYSTEM: Unlabored breathing , decreased breath sounds at bases HEART: S1 S2 regular rate and rhythm , ABDOMEN: Soft , no tenderness EXTREMITIES: No edema feet - Labs CBC & Chem 7: 04/22/23 05:52 04/22/23 05:52 Assessment and Plan (1) SIRS (systemic inflammatory response syndrome) Current Visit: Yes Status: Acute Code(s): R65.10 - SIRS OF NON-INFECTIOUS ORIGIN W/O ACUTE ORGAN DYSFUNCTION SNOMED Code(s): 708374348 Plan: 1patient was in the hospital with weakness lethargy apparently did have a fall patient did have mild tachycardia elevated lactic acid however no fever and white count has been normal initial work-up including a chest x-ray and UA was negative CT abdominal pelvis did show some fullness of the collecting system and concern for possible bladder outlet obstruction patient did have mild tenderness to right lower quadrant area on clinical examination 2-we did repeat her UA which was negative, CRP and a procalcitonin currently pending 3-nursing staff has been advised to check postvoid residual and continue with the empiric Rocephin while waiting for the work-up to be completed Time with Patient: Less than 30
[2023-04-23 01:30] VITALS: RESP 16
[2023-04-23] MEDS ORDERED: METOPROLOL TARTRATE 50 MG TAB PO STA (01:34)
[2023-04-23] MEDS: SODIUM CHLORIDE 0.9% 1,000 ML IV SCH ×3 (05:37→21:21)
[2023-04-23 07:21] LABS: African American GFR (CKD) >90 (>60 ml/min/1.73 sqM); Non-African American GFR(CKD) 81 (>60 ml/min/1.73 sqM)
[2023-04-23] MEDS: HEPARIN SODIUM,PORCINE/PF 5,000 UNIT/0.5 ML SYRINGE SQ SCH ×2 (08:13→21:13)
[2023-04-23] MEDS: Acetaminophen-Codeine 300-30mg TAB PO SCH ×2 (08:13→21:12)
--- NOTE | 2023-04-23 10:41 | P.GSCN ---
History of Present Illness Reason for Consult: urinary retention History of present illness: This is a 62-year-old female admitted to the hospital for abdominal pain. Patient has been having difficulty voiding and complaining of dribbling with urination. Denies any gross hematuria or dysuria. No previous history of urinary retention. On presentation underwent a CT abdomen/pelvis showed evidence of a distended bladder, her postvoid residual was checked and was elevated at 420 mL's. No histories of kidney stones or recurrent UTIs Review of Systems - Constitutional Denies fever, Denies weight loss - Cardiovascular Denies chest pain, Denies shortness of breath - Gastrointestinal Reports abdominal pain - Genitourinary Genitourinary: Reports difficulty voiding, Denies kidney stones - Integumentary Denies rash, Denies unusual bruising - Neurological Denies headaches, Denies syncope Past Medical History Past Medical History: COPD, Hypertension Additional Past Medical History / Comment(s): etoh History of Any Multi-Drug Resistant Organisms: None Reported Additional Past Surgical History / Comment(s): eye. back. foot Past Anesthesia/Blood Transfusion Reactions: No Reported Reaction Past Psychological History: Bipolar Smoking Status: Current every day smoker Past Alcohol Use History: Abuse Past Drug Use History: Methamphetamine Medications and Allergies Home Medications Medication Instructions Recorded Confirmed Type Atorvastatin [Lipitor] 10 mg PO HS 04/21/23 04/21/23 History Metoprolol Tartrate [Lopressor] 50 mg PO DAILY 04/21/23 04/21/23 History Omeprazole [PriLOSEC] 40 mg PO DAILY 04/21/23 04/21/23 History QUEtiapine FUMARATE [SEROquel XR] 600 mg PO HS 04/21/23 04/21/23 History metFORMIN HCL 1,000 mg PO BID 04/21/23 04/21/23 History Allergies Allergy/AdvReac Type Severity Reaction Status Date / Time Sulfa (Sulfonamide Allergy Unknown Verified 04/21/23 11:21 Antibiotics) Surgical - Exam Vital Signs Temp Pulse Resp Pulse Ox 96.9 F L 117 H 18 93 L 04/21/23 07:51 04/21/23 07:51 04/21/23 07:51 04/21/23 07:51 - General no distress - Eyes normal ocular movement, no pale - ENT normal nares, normal mucosa - Respiratory normal expansion, normal respiratory effort - Abdomen Abdomen: soft, tender (Lower quadrant), no distended - Psychiatric oriented to time, oriented to person, oriented to place Results - Labs 04/22/23 05:52 04/23/23 06:08 Abnormal Lab Results - Last 24 Hours (Table) 04/22/23 04/22/23 Range/Units 05:52 05:52 MCHC 31.6 L (32.0-37.0) d/dL Eosinophils # 0.40 H (0.04-0.35) X 10*3/uL Carbon Dioxide 18.5 L (21.6-31.8) mmol/L Anion Gap 18.50 H (4.00-12.00) mmol/L BUN/Creatinine Ratio 20.89 H (12.00-20.00) Ratio Total Bilirubin 0.2 L (0.3-1.2) mg/dL Total Protein 5.7 L (6.2-8.2) d/dL Albumin 3.6 L (3.8-4.9) d/dL Diabetes panel 04/22/23 Range/Units 05:52 Sodium 144 (135-145) mmol/L Potassium 4.9 (3.5-5.5) mmol/L Chloride 107 (96-109) mmol/L Carbon Dioxide 18.5 L (21.6-31.8) mmol/L BUN 18.8 (9.0-27.0) mg/dL Creatinine 0.9 (0.6-1.5) mg/dL Glucose 74 (70-110) mg/dL Calcium 8.8 (8.7-10.3) mg/dL AST 19 (13-35) U/L ALT 18 (8-44) U/L Alkaline Phosphatase 64 (41-126) U/L Total Protein 5.7 L (6.2-8.2) d/dL Albumin 3.6 L (3.8-4.9) d/dL Calcium panel 04/22/23 Range/Units 05:52 Calcium 8.8 (8.7-10.3) mg/dL Albumin 3.6 L (3.8-4.9) d/dL Pituitary panel 04/22/23 Range/Units 05:52 Sodium 144 (135-145) mmol/L Potassium 4.9 (3.5-5.5) mmol/L Chloride 107 (96-109) mmol/L Carbon Dioxide 18.5 L (21.6-31.8) mmol/L BUN 18.8 (9.0-27.0) mg/dL Creatinine 0.9 (0.6-1.5) mg/dL Glucose 74 (70-110) mg/dL Calcium 8.8 (8.7-10.3) mg/dL Adrenal panel 04/22/23 Range/Units 05:52 Sodium 144 (135-145) mmol/L Potassium 4.9 (3.5-5.5) mmol/L Chloride 107 (96-109) mmol/L Carbon Dioxide 18.5 L (21.6-31.8) mmol/L BUN 18.8 (9.0-27.0) mg/dL Creatinine 0.9 (0.6-1.5) mg/dL Glucose 74 (70-110) mg/dL Calcium 8.8 (8.7-10.3) mg/dL Total Bilirubin 0.2 L (0.3-1.2) mg/dL AST 19 (13-35) U/L ALT 18 (8-44) U/L Alkaline Phosphatase 64 (41-126) U/L Total Protein 5.7 L (6.2-8.2) d/dL Albumin 3.6 L (3.8-4.9) d/dL Assessment and Plan Assessment: This is a 62-year-old female urology is consulted for urinary retention elevated post void residual. No previous history of urinary retention, patient having new onset difficulty voiding, patient is also having constipation. At this time recommend addressing her constipation as this is contributing to her voiding symptoms. From urology standpoint. We'll check patient post void residual, if greater than 400 mL recommend straight cath. We'll start him on Flomax to help with bladder emptying
--- NOTE | 2023-04-23 10:42 | P.PN ---
Subjective Progress Note Date: 04/23/23 No acute overnight events, indicates voiding is unchanged but her postvoid residual has improved to 26 mL this morning Objective - Vital Signs Vital signs: Vital Signs Temp 98.9 F 04/23/23 06:45 Pulse 80 04/23/23 06:45 Resp 16 04/23/23 06:45 BP 140/100 04/23/23 06:45 Pulse Ox 96 04/23/23 06:45 FiO2 Intake & Output 04/22/23 04/23/23 04/23/23 18:59 06:59 18:59 Intake Total 200 Output Total 830 343 26 Balance -630 -343 -26 Weight 65.771 kg Intake: Oral 200 Output: Urine 430 Straight 230 Post Void Residual 400 343 26 Other: Voiding Method Toilet Toilet Toilet # Voids 2 2 - Constitutional General appearance: Present: no acute distress - Gastrointestinal General gastrointestinal: Present: soft. Absent: distended, tenderness - Labs CBC & Chem 7: 04/22/23 05:52 04/23/23 06:08 Labs: Abnormal Lab Results - Last 24 Hours (Table) 04/22/23 04/22/23 Range/Units 05:52 05:52 MCHC 31.6 L (32.0-37.0) d/dL Eosinophils # 0.40 H (0.04-0.35) X 10*3/uL Carbon Dioxide 18.5 L (21.6-31.8) mmol/L Anion Gap 18.50 H (4.00-12.00) mmol/L BUN/Creatinine Ratio 20.89 H (12.00-20.00) Ratio Total Bilirubin 0.2 L (0.3-1.2) mg/dL Total Protein 5.7 L (6.2-8.2) d/dL Albumin 3.6 L (3.8-4.9) d/dL Assessment and Plan Assessment: She is okay for discharge from urology standpoint, recommend discharging with Flomax
[2023-04-23] MEDS ORDERED: SODIUM CHLORIDE 0.9% 1,000 ML IV ONE (12:21)
--- NOTE | 2023-04-23 12:30 | P.PN ---
Subjective Progress Note Date: 04/23/23 Principal diagnosis: SIRS Patient is a 62-year-old female with a past medical history significant for bipolar disorder substance Use who is currently in the [facility] patient has been brought into the ER for evaluation of weakness lethargy and hypotension , patient did have a extensive workup with a negative UA and chest x-ray CT abdominal pelvis with some right-sided fullness but no mention of any pyelonephritis or cystitis. On today's evaluation that is 04/23/2023, the patient remains to be febrile, the patient is breathing comfortably on room air no chest pain shortness of breath or cough no abdominal pain or diarrhea, did have improvement in the postvoid residual after starting on Flomax Objective - Vital Signs Vital signs: Vital Signs Temp 98.9 F 04/23/23 06:45 Pulse 80 04/23/23 06:45 Resp 16 04/23/23 06:45 BP 140/100 04/23/23 06:45 Pulse Ox 96 04/23/23 06:45 FiO2 Intake & Output 04/22/23 04/23/23 04/23/23 18:59 06:59 18:59 Intake Total 200 Output Total 830 343 26 Balance -630 -343 -26 Weight 65.771 kg Intake: Oral 200 Output: Urine 430 Straight 230 Post Void Residual 400 343 26 Other: Voiding Method Toilet Toilet Toilet # Voids 2 2 - Exam GENERAL DESCRIPTION: Middle-aged female lying in bed in no distress RESPIRATORY SYSTEM: Unlabored breathing , decreased breath sounds at bases HEART: S1 S2 regular rate and rhythm , ABDOMEN: Soft , no tenderness EXTREMITIES: No edema feet - Labs CBC & Chem 7: 04/22/23 05:52 04/23/23 06:08 Labs: Abnormal Lab Results - Last 24 Hours (Table) 04/22/23 Range/Units 05:52 Carbon Dioxide 18.5 L (21.6-31.8) mmol/L Anion Gap 18.50 H (4.00-12.00) mmol/L BUN/Creatinine Ratio 20.89 H (12.00-20.00) Ratio Total Bilirubin 0.2 L (0.3-1.2) mg/dL Total Protein 5.7 L (6.2-8.2) d/dL Albumin 3.6 L (3.8-4.9) d/dL Assessment and Plan (1) SIRS (systemic inflammatory response syndrome) Current Visit: Yes Status: Acute Code(s): R65.10 - SIRS OF NON-INFECTIOUS ORIGIN W/O ACUTE ORGAN DYSFUNCTION SNOMED Code(s): 798439999 Plan: 1patient was in the hospital with weakness lethargy apparently did have a fall patient did have mild tachycardia elevated lactic acid however no fever and white count has been normal initial work-up including a chest x-ray and UA was negative CT abdominal pelvis did show some fullness of the collecting system and concern for possible bladder outlet obstruction patient did have mild tenderness to right lower quadrant area on clinical examination 2-we did repeat her UA which was negative, CRP and a procalcitonin is normal Patient remains to be afebrile culture has been negative antibiotic can be s afely discontinued Time with Patient: Less than 30
[2023-04-23] MEDS: amLODIPine 5 MG TAB PO SCH (14:14)
[2023-04-23] MEDS ORDERED: ATORVASTATIN 10 MG TAB PO SCH (21:00)
[2023-04-23] MEDS: FAMOTIDINE 20 MG/2 ML VIAL IV SCH (21:13)
[2023-04-23] MEDS: DOCUSATE 100 MG CAP PO SCH (21:13)
--- NOTE | 2023-04-23 23:58 | P.PN ---
Subjective This is a pleasant 62 years old female with past medical history of bipolar disorder, nicotine dependence, substance abuse. Patient was sent from skilled nursing for evaluation of weakness and lethargy and hypotension patient was pale and sleepy answers questions appropriately and speech is clear. Patient comes from skilled nursing, she has been in skilled nursing for the last 4-5 days as she states, there is a security patrol officer at bedside. Patient says that she's been feeling very weak over the last 2 days, she fell 2 days ago and one more time yesterday morning after she took her Seroquel morning dose she feels very weak. She complains from some pain in the tail bone. She d enies any other body trauma. She states that she has decreased frequency of urination but no dysuria or urgency, her appetite is okay and she denies any diarrhea or vomiting or abdominal A however on exam she has mild epigastric tenderness and suprapubic tenderness She denies chest pain dyspnea. She denies weakness or numbness, she had headaches on and off but currently she has no headache or very very mild headache. She smokes about 5 cigarettes per day and she was counseled to quit but he does not now. She's been drinking alcohol, she states about 5 out of 7 days she's been drinking and the stomach was before going to skilled nursing. She admits using methamphetamine and patient was counseled to quit all the substances and she agrees On admission she is tachycardic with heart rate 114 Blood pressure was on the low side 77/52 on admission, currently 110/76 after 2 L emergency room CBC is unremarkable hemoglobin 16.3. INR 1.0. Creatinine is slightly up 1.2 rest of BMP, liver enzymes, troponin and TSH were unremarkable and within the reference range. Slightly elevated lactic acid came back to normal. Urine analysis is negative. Urine drug screen is positive for tricyclic antidepressant, amphetamine and methamphetamine EKG showing sinus tachycardia at [address]-T changes Chest x-ray: No acute process CT of the brain: No acute process. Besides the fluids patient received 1 dose of ceftriaxone in the emergency room and started on vancomycin and consulted ID team for possible sepsis 04/21/2023 Patient states that her low back pain today is mild 2-3/10 in severity, she still has mild lightheadedness but she is able to increase movement, patient was able to walk to the bathroom by herself just confirmed by the bedside officer. She denies any other specific complaint She had some mild suprapubic and to the right side tenderness and she has fullness in the renal system, obstructive lesion of the urinary bladder was suspected urologist consulted, patient postvoid she has retention of over 400 mL she straight cath and then she emptied everything. We will keep doing bladder scan. We will add Tylenol No. 3 for her low back pain Patient blood pressure is improving, however she needed assistance walking to the bathroom. Patient denies any weakness or new numbness in her lower extremities or somewhere else, and on my exam I did not notice any significant weakness in both upper and lower extremities, no decreased sensation. Patient complains from chronic tingling in the salt of her feet but states that's chronic from her neuropathy. We'll continue normal saline with 130 mL/h. Discussed with staff to check orthostatic vital 04/23/2023 Patient today improved significantly, and she was asking me if she can be discharged back to skilled nursing today on further evaluation she looks more hydrated more relaxed not in distress denies any specific complaints her weakness is improving and she become more energetic, no diarrhea or coughing or respiratory symptoms, no urinary symptoms. She still mildly tachycardic Orthostatic vitals were checked and they were stable with no postural symptoms. However when I tried to get her up from the bed and test her gait she had difficulty moving from the sitting to standing position and twice she has to lay back to the back and one at the Center dated she states that's her normal gait however she was slipped lightheadedness a little wobbly because of still dehydration. Because of this a liter of normal saline as provided for the patient, Norvasc 5 mg is admitted to control slightly elevated blood pressure. Antibiotic was discontinued by infectious disease team, she was positioned to treatment and no further evidence of infection. No fever or leukocytosis Possible discharge in 24-48 hours if she keeps improving Objective - Vital Signs Vital signs: Vital Signs Temp 98.7 F 04/23/23 13:14 Pulse 96 04/23/23 13:14 Resp 16 04/23/23 13:14 BP 147/108 04/23/23 13:14 Pulse Ox 97 04/23/23 13:14 FiO2 Intake & Output 04/22/23 04/23/23 04/23/23 18:59 06:59 18:59 Intake Total 200 Output Total 830 343 26 Balance -630 -343 -26 Weight 65.771 kg Intake: Oral 200 Output: Urine 430 Straight 230 Post Void Residual 400 343 26 Other: Voiding Method Toilet Toilet Toilet # Voids 2 2 - Exam GENERAL: The patient is alert and oriented x3, not in any acute distress. Well developed, well nourished. HEENT: Pupils are round and equally reacting to light. EOMI. No scleral icterus. No conjunctival pallor. Normocephalic, atraumatic. No pharyngeal erythema. No thyromegaly. CARDIOVASCULAR: S1 and S2 present. No murmurs, rubs, or gallops. PULMONARY: Chest is clear to auscultation, no wheezing . no crackles. ABDOMEN: Soft, nontender, nondistended, normoactive bowel sounds. No palpable organomegaly. MUSCULOSKELETAL: No joint swelling or deformity. EXTREMITIES: No cyanosis, clubbing, or pedal edema. NEUROLOGICAL: Gross neurological examination did not reveal any focal deficits. SKIN: No rashes. no petechiae. - Labs CBC & Chem 7: 04/22/23 05:52 04/23/23 06:08 Labs: Abnormal Lab Results - Last 24 Hours (Table) 04/22/23 Range/Units 05:52 Carbon Dioxide 18.5 L (21.6-31.8) mmol/L Anion Gap 18.50 H (4.00-12.00) mmol/L BUN/Creatinine Ratio 20.89 H (12.00-20.00) Ratio Total Bilirubin 0.2 L (0.3-1.2) mg/dL Total Protein 5.7 L (6.2-8.2) d/dL Albumin 3.6 L (3.8-4.9) d/dL Microbiology - Last 24 Hours (Table) 04/21/23 10:58 Blood Culture - Preliminary Blood 04/21/23 10:45 Blood Culture - Preliminary Blood Assessment and Plan Assessment: Hypotension, present on admission. Rule out sepsis Generalized weakness and lethargy secondary to above Mild acute kidney injury secondary to above Substance abuse, Urine drug screen is positive for tricyclic antidepressant, amphetamine and methamphetamine Fall at home with temp on blunt trauma Dilated gallbladder and right collecting renal system. Mild most likely related to mild urinary retention. Plan: Continue with aggressive fluid hydration, currently NS at 1:30 Monitor heart rate and blood pressure, improving with IV fluids most likely secondary to dehydration Follow-up with infectious disease team and follow up their recommendation regarding antibiotic management. Currently on ceftriaxone Follow-up with urologist and continue bladder scan Labs and medication were reviewed.. Continue same treatment. Continue with s ymptomatic treatment. Resume home medication. Monitor labs and vitals. DVT and GI prophylaxis. Further recommendations as per clinical course of the patient DVT prophylaxis: Subcutaneous heparin GI Prophylaxis: Pepcid Prognosis is guarded
[2023-04-24] MEDS: SODIUM CHLORIDE 0.9% 1,000 ML IV SCH (05:56)
[2023-04-24 06:43] LABS: African American GFR (CKD) >90 (>60 ml/min/1.73 sqM); Non-African American GFR(CKD) >90 (>60 ml/min/1.73 sqM)
[2023-04-24] MEDS: amLODIPine 5 MG TAB PO SCH (07:43)
[2023-04-24] MEDS: HEPARIN SODIUM,PORCINE/PF 5,000 UNIT/0.5 ML SYRINGE SQ SCH (07:43)
[2023-04-24] MEDS: DOCUSATE 100 MG CAP PO SCH (07:44)
[2023-04-24] MEDS: Acetaminophen-Codeine 300-30mg TAB PO SCH (07:44)
[2023-04-24 08:33] VITALS: BP 128/92; PULSE 85; TEMP 97.9
[2023-04-24] MEDS ORDERED: METOPROLOL TARTRATE 50 MG TAB PO SCH (09:00)
[2023-04-24] MEDS ORDERED: TAMSULOSIN 0.4 MG CAP.ER.24H PO STA (09:35)
--- NOTE | 2023-04-24 11:08 | P.PN ---
Subjective no acute overnight events, patient is able to void without any difficulties at this time Objective - Vital Signs Vital signs: Vital Signs Temp 97.9 F 04/24/23 07:12 Pulse 85 04/24/23 07:12 Resp 16 04/24/23 09:00 BP 128/92 04/24/23 07:12 Pulse Ox 97 04/24/23 09:13 FiO2 Intake & Output 04/23/23 04/24/23 04/24/23 18:59 06:59 18:59 Output Total 26 Balance -26 Output: Post Void Residual 26 Other: Voiding Method Toilet Toilet Toilet # Voids 1 4 - Constitutional General appearance: Present: no acute distress - Gastrointestinal General gastrointestinal: Absent: distended, tenderness - Labs CBC & Chem 7: 04/22/23 05:52 04/24/23 05:43 Labs: Microbiology - Last 24 Hours (Table) 04/21/23 10:58 Blood Culture - Preliminary Blood 04/21/23 10:45 Blood Culture - Preliminary Blood Assessment and Plan Assessment: She is okay for discharge from urology standpoint, recommend discharging with Flomax
--- NOTE | 2023-04-24 21:58 | P.DS ---
Providers Date of admission: 04/21/23 11:14 Attending physician: Ortega Reyes MD Consults: 04/21/23 11:09 Consult Physician Urgent Consulting Provider: Marly Sheppard Consult Reason/Comments: Possible sepsis Do you want consulting provider notified?: Yes 04/22/23 09:31 Consult Physician Urgent Consulting Provider: Rian Jensen Consult Reason/Comments: obstructive uropathy vs neurogenic bladder Do you want consulting provider notified?: Yes Primary care physician: Dave Stearns MD Hospital Course: Diagnoses: Hypotension, present on admission. Resolved and sepsis ruled out noted for antibiotics upon discharge Generalized weakness and lethargy secondary to above results Mild acute kidney injury secondary to above, resolved Substance abuse, Urine drug screen is positive for tricyclic antidepressant, amphetamine and methamphetamine Fall at home with tail bone blunt trauma , gait is normal Dilated urinary bladder and right collecting renal system. Mild most likely related to mild urinary retention. Evaluated by separator operator shellfish meats and cleared for discharge Hospital course: This is a pleasant 62 years old female with past medical history of bipolar disorder, nicotine dependence, substance abuse. [facility] of weakness and lethargy and hypotension patient was pale and sleepy answers questions appropriately and speech is clear. [facility] comes [facility], she has been in [facility] for the last 4-5 days as she states, there is a minesweeping officer at bedside. Patient says that she's been feeling very weak over the last 2 days, she fell 2 days ago and one more time yesterday morning after she took her Seroquel morning dose she feels very weak. She complains from some pain in the tail bone. She denies any other body trauma. She states that she has decreased frequency of urination but no dysuria or urgency, her appetite is okay and she denies any diarrhea or vomiting or abdominal A however on exam she has mild epigastric tenderness and suprapubic tenderness Patient found to have severely dehydrated tachycardic and hypotensive and hypovolemic, with mildly elevated creatinine, Patient also found to have mild degree of urinary retention, evaluated by urolog ist, no need for [place] catheter recommended just to add Flomax for her upon discharge With aggressive hydration her symptoms improved on the day of discharge she is fully awake and oriented, she denies chest pain dyspnea, no new GI urinary or neurological symptoms. Postural vitals were checked and were negative. Get up and go test is normal. Patient was cleared for discharge by urologist and by infectious disease team. Per ID team going for antibiotics upon discharge Problems and management plan were discussed with the patient and he verbalized understanding and acceptance Patient was found stable and can be discharged home in guarded prognosis however he needs follow-up as an outpatient. Patient was instructed to follow up with PCP Dr. Stearns within one week and patient agrees Patient was instructed to follow up with urologist Dr. tamez in 2 weeks after discharge and she agrees Physical exam Gen: patient is a AAOx3, no distress CVS: S1-S2, RRR, no murmur Lungs: B/L CTA, no wheezing Abdomen: soft, no distention, no tenderness, positive bowel sounds Extremity: no leg edema or induration Gait: Normal, Dr. and glottis is normal. Neurological: Cranial nerves are grossly intact, motor 5/5, sensation intact. No evidence of focal neurological deficit Time spent more than 35 minutes Patient Condition at Discharge: Poor Plan - Discharge Summary Discharge Rx Participant: Yes New Discharge Prescriptions: New Tamsulosin HCl [Flomax] 0.4 mg PO DAILY #30 capsule RX: Acetaminophen Tab [Tylenol] 650 mg PO Q6HR PRN tab PRN Reason: Mild Pain Or Fever > 100.5 RX: Docusate [Colace] 100 mg PO BID PRN 5 Days #10 cap PRN Reason: Constipation RX: amLODIPine [Norvasc] 5 mg PO DAILY #30 tab Continue RX: Atorvastatin [Lipitor] 10 mg PO HS RX: metFORMIN HCL 1,000 mg PO BID RX: Omeprazole [PriLOSEC] 40 mg PO DAILY RX: Metoprolol Tartrate [Lopressor] 50 mg PO DAILY RX: QUEtiapine FUMARATE [SEROquel XR] 600 mg PO HS Discharge Medication List RX: Atorvastatin [Lipitor] 10 mg PO HS 04/21/23 [History] RX: Metoprolol Tartrate [Lopressor] 50 mg PO DAILY 04/21/23 [History] RX: Omeprazole [PriLOSEC] 40 mg PO DAILY 04/21/23 [History] RX: QUEtiapine FUMARATE [SEROquel XR] 600 mg PO HS 04/21/23 [History] RX: metFORMIN HCL 1,000 mg PO BID 04/21/23 [History] RX: Acetaminophen Tab [Tylenol] 650 mg PO Q6HR PRN tab 04/24/23 [Rx] RX: Docusate [Colace] 100 mg PO BID PRN 5 Days #10 cap 04/24/23 [Rx] RX: amLODIPine [Norvasc] 5 mg PO DAILY #30 tab 04/24/23 [Rx] Tamsulosin HCl [Flomax] 0.4 mg PO DAILY #30 capsule 04/24/23 [Rx] Follow up Appointment(s)/Referral(s): Derick Tamez MD [STAFF PHYSICIAN] - 2 Weeks (urologist) Dave Stearns MD [Primary Care Provider] - 1-2 days Patient Instructions/Handouts: Hypotension (DC), Methamphetamine Abuse (DC), Chronic Urinary Retention in Women (DC) Activity/Diet/Wound Care/Special Instructions: heart healthy diet activity is restricted till you see your doctor please follow up with your with your [facility] in 1-2 days Discharge/Stand Alone Forms: AA Meetings [place] Discharge Disposition: HOME SELF-CARE
== END 2023-04-24 13:40 | disposition home or self-care (01) | DRG 699 ==
LOC: EC 07:50 → OBSVTOIN 11:14 → 6NMEDSUR 11:14 → 4SSUR 16:49
PROVIDERS: ADMIT Internal Medicine; ATTEND Internal Medicine
DX: N32.0 Bladder-neck obstruction (principal); N17.9 Acute kidney failure, unspecified; R65.10 Systemic inflammatory response syndrome (SIRS) of non-infectious origin without acute organ dysfunction; I95.9 Hypotension, unspecified; F31.9 Bipolar disorder, unspecified; F10.10 Alcohol abuse, uncomplicated; I10 Essential (primary) hypertension; E86.0 Dehydration; F17.210 Nicotine dependence, cigarettes, uncomplicated; R00.0 Tachycardia, unspecified; K82.8 Other specified diseases of gallbladder; F15.90 Other stimulant use, unspecified, uncomplicated; N32.89 Other specified disorders of bladder; E86.1 Hypovolemia; K59.00 Constipation, unspecified; G62.9 Polyneuropathy, unspecified; W19.XXXA Unspecified fall, initial encounter; Y92.009 Unspecified place in unspecified non-institutional (private) residence as the place of occurrence of the external cause; Z71.51 Drug abuse counseling and surveillance of drug abuser; Z79.84 Long term (current) use of oral hypoglycemic drugs; Z88.2 Allergy status to sulfonamides; Z79.899 Other long term (current) drug therapy
CPT/HCPCS: 36415; 70450; 71046; 74176; 80053; 80306; 81003; 82565; 83605; 83735; 84145; 84443; 84484; 85025; 85610; 85730; 86140; 87040; 93005; 94760; 96361; 96365; 96366; 96367; 99285